=== PATIENT | female | born 1930 | race Caucasian/White ===

== ENCOUNTER → 2016-08-07 | Outpatient (CLI) | payer MEDICARE, BC, OTHER ==
[~2016-08-07] MED LIST: ACTO150T PO; ASPI1TAB PO; CALC600T7 PO; DOCU10CA PO; KEPP500T6 PO; LIPI20TA PO; MELO7.5T6 PO; MIRA3350 PO; PEPC1TAB4 PO; PLAV75TA PO; PRESCAP PO; PROZ10CA7 PO; TYLE325T5 PO; VITMTA PO
--- NOTE | 2016-08-07 14:52 | REP ---
Right hip: Two views. History: Hip and low back pain. Findings: AP and frog-leg views of the right hip show diffuse osteopenia. Femoral head is smooth and rounded. There is osteoarthritic spurring and some chondrocalcinosis at the hip. No fractures seen. Vascular calcification is noted. Impression: Diffuse osteopenia. Osteoarthritic changes. Some vascular calcification. No acute bony abnormality. Signed by Royal Hoffmann MD 08/07/2016 03:39 P
--- NOTE | 2016-08-07 14:54 | REP ---
Lumbar spine series: Five views. History: Low back and hip pain. Comparison views are from June 25, 2015. Findings: There is a levoconvex thoracolumbar curve. There is osteoporotic wedging at the L3 and to some degree at L4. The L3 changes are status quo. There is some interval loss of vertebral body height at L4 compared to the June 25, 2015 study. No acute step-off is seen to suggest an acute fracture. Disc spaces are maintained. Vascular calcification is noted. There is diffuse degenerative disc and multi focal osteoarthritic facet disease. Advanced discogenic sclerosis and spur formation is seen at the L1, L2 unchanged. Sacrum and SI joints are intact. Impression: Osteoporotic wedging at L3 and L4 with interval loss of vertebral body height at L4 compared to June 25, 2015 prior study. Scoliosis, degenerative disc disease, and osteoarthritic facet disease are again noted. Signed by Royal Hoffmann MD 08/07/2016 03:39 P
== END ==
LOC: M WUC 11:26
PROVIDERS: ATTEND Physician Assistant
DX: M85.851 Other specified disorders of bone density and structure, right thigh (principal); M81.0 Age-related osteoporosis without current pathological fracture; M41.9 Scoliosis, unspecified; M51.36 Other intervertebral disc degeneration, lumbar region; M47.816 Spondylosis without myelopathy or radiculopathy, lumbar region

== ENCOUNTER 2016-08-08 14:11 | Emergency (ER) | payer MEDICARE, BC, OTHER ==
--- NOTE | 2016-08-08 16:29 | REP ---
CT CERVICAL SPINE WITHOUT CONTRAST: HISTORY: Back pain. A diffuse disc bulge is present at the L1-2 level. There are 2 mm of retrolisthesis of L1 on 2. There is minimal compression of the thecal sac. The L1 nerves exit the neural foramina without compression. A diffuse disc bulge is present at the L2-3 level. There is minimal compression of the thecal sac. There is hypertrophy of the posterior articulating facets. The L2 nerves exit the neural foramina without compression. A diffuse disc bulge is present at the L3-4 level. There is hypertrophy of the ligamenta flava and posterior articulating facets. These findings produce mild central canal stenosis. The L3 nerves exit the neural foramina without compression. A diffuse disc bulge is present at the L4-5 level. There is hypertrophy of the ligamentum flava and posterior articulating facets. There are 6 mm of grade 1 spondylolisthesis of L4 on 5. These findings produce moderate central canal stenosis. There is compression of the left L4 nerve in the neural foramen. The right L4 nerve exit the neural foramen without compression. A diffuse disc bulge is present at the L5-S1 level. There is minimal compression of the thecal sac. There is hypertrophy of the posterior articulating facets. There are 4 mm of grade 1 spondylolisthesis of L5 on S1. There is compression of the L5 nerves in the neural foramina. The lumbar intervertebral discs are decreased in height. Vacuum phenomenon is present at the T11-12 through L2-3 and L4-5 levels. These findings are consistent with disc degeneration. The are old compression fracture of the L3 and L4 vertebral bodies with mild and minimal height loss. There is scoliosis convex to the left. IMPRESSION: 1. Diffuse disc bulge and retrolisthesis at the L1-2 level with minimal thecal sac compression. 2. Diffuse disc bulge at the L2-3 level with minimal thecal sac compression. 3. Mild central canal stenosis at the L3-4 level secondary to disc bulge, ligamentous and facet hypertrophy. 4. Moderate central canal stenosis at the L4-5 level secondary to disc bulge, ligamentous, and facet hypertrophy and grade 1 spondylolisthesis. 5. Diffuse disc bulge at the L5-S1 level with minimal thecal sac compression. There is grade 1 spondylolisthesis of L5 on S1. Signed by Humble Frausto MD 08/08/2016 04:51 P
[2016-08-08] MEDS ORDERED: traMADol 50 MG TAB As Ordered ONE (18:04)
--- NOTE | 2016-08-08 18:24 | EDDOCDS ---
Nurse's Notes [facility] Name: Jamilah Shipman Age: 86 yrs Sex: Female : 1930 Arrival Date: 08/08/2016 Time: 14:11 Bed 8 Private MD: Diagnosis: Discitis, unspecified, multiple sites in spine Presentation: 08/08 14:13 Presenting complaint: EMS states: Pt was taken to urgent care yesterday for back pain hs1 and multiple X-rays taken. Pt presenting back with increased pain. Son states Tylenol not working and pain is increased, home health workers unable to get patient up and moving. Son states might be on going issue as a week ago pt also reported back issues. Acute neurological deficits are not present. Mechanism of Injury: No Mechanism of Injury. Adult Sepsis Screening: The patient does not have new or worsening altered mentation. Patient's respiratory rate is less than 22. Systolic blood pressure is less than or equal to 100 (1 point). Patient has a qSOFA score of 0- Negative Sepsis Screen. Suicide/Homicide risk assessment- the patient denies having any suicidal and/or homicidal ideations and does not present with any other emotional, behavioral or mental health complaints. Status: Patient is not a career services coordinator or dependent. Transition of care: patient was not received from another setting of care. 14:13 Acuity: CALE Level 4 hs1 14:13 Method Of Arrival: Ambulance hs1 Triage Assessment: 14:13 General: Appears in no apparent distress, Behavior is appropriate for age. Pain: hs1 Location: back. Neurological: Level of Consciousness is awake, alert, obeys commands. Respiratory: Airway is patent Respiratory effort is even, unlabored, Respiratory pattern is regular, symmetrical. Derm: Skin is pink, warm & dry. normal. Musculoskeletal: cervical spine is non-tender. Capillary refill < 3 seconds Signs and Symptoms of Compartment Syndrome: no signs of compartment syndrome Tenderness present in back. Historical: - Allergies: Aricept (confusion); Azithromycin (itchy); - Home Meds: 1. Actonel 150 mg Oral tab 1 tab once moly 2. Xanax 0.25 mg Oral tab 1 tab as needed (Last dose: 08/08/2016 13:00) 3. Voltaren topical Oral as needed 4. Tylenol 500 mg Oral 2 tabs every 6 hours as needed (Last dose: 08/08/2016 13:00) 5. Crestor 10 mg Oral tab 1 tab once daily 6. meloxicam 7.5 mg oral tab 1 tab once daily (Last dose: 08/08/2016 08:00) 7. Prozac 20 mg Oral cap 1 cap once daily 8. Risperdal 0.5 mg Oral tab 1 tabs once daily 9. Vitamin D Oral 2000 units daily 10. aspirin 81 mg Oral chew 1 tab once daily 11. multivitamin Oral tab 12. Colace 100 mg oral cap 1 cap once daily 13. Benadryl 25 mg Oral cap 1 cap once daily - PMHx: Arthritis; CVA; Hypercholesterolemia; intracranial hemorrhage; Osteoporosis; transient vision loss; - PSHx: Hernia repair; Brain Aneurysm Repair; - Social history: Smoking status: Patient states former smoker of tobacco. No barriers to communication noted, The patient speaks fluent Wolof, Speaks appropriately for age. - Family history: Not pertinent. - : The pt / caregiver states he / she is not on anticoagulants. Home medication list is obtained from the patient. - Exposure Risk Screening:: None identified. Screenin:07 Screening information is obtained from family members. Fall risk: At risk due to age, hs1 apparent cognitive impairment, The following interventions are performed due to a positive Fall Risk Screen: Fall Risk is added to Special Handling on the patient Summary Screen. A Fall Risk Bracelet was applied to the patient. Side Rails are placed in the up position. A Call Rodriguez is given with instruction to call for help when getting out of bed. Fall Alert bracelet is placed on the patient. Abuse/DV Screen: The patient / caregiver reports he/she is: not in a situation that causes fear, pain or injury. Nutritional screening: No deficits noted. home support is adequate. 18:16 Assistance ADL's: Requires assistance with meal preparation, this assistance is hs1 provided by family members, bathing, assistance is provided by family members, dressing, assistance is provided by family members, toileting, assistance is provided by family members, housework, assistance is provided by family members, medication administration, assistance is provided by family members. Advance Directives: There is an active DNR order but there is no copy available at this time. Assessment: 15:07 General: Appears in no apparent distress, comfortable, Behavior is appropriate for age, hs1 cooperative. Neurological: Level of Consciousness is awake, alert, obeys commands. Respiratory: Airway is patent Respiratory effort is even, unlabored. Derm: Skin is pink, warm & dry. normal. 16:49 General: Appears in no apparent distress, comfortable, Behavior is appropriate for age, hs1 cooperative, Pt tolerated getting on a fracture jade and assisted staff with helping lift hips. . 18:15 General: Appears in no apparent distress, comfortable, Behavior is appropriate for age, hs1 cooperative. Pain: Location: back. Cardiovascular: No deficits noted. Respiratory: Airway is patent Respiratory effort is even, unlabored. Derm: Skin is pink, warm & dry. normal. Vital Signs: 15:11 BP 157 / 71 LA Supine (auto/reg); Pulse 61 MON; Resp 20 S; Temp 97.0(O); Pulse Ox 95% cln on R/A; Pain 10/10; 18:16 BP 195 / 89; Pulse 66; Resp 18; Temp 98.6(TE); Pulse Ox 98% ; hs1 Vitals: 15:12 Log In Time N/A - ambulance arrival. hs1 ED Course: 14:12 Patient visited by Kristina Mendoza, Director Technical. deg 14:12 Patient moved to Waiting deg 14:12 Patient moved to 8 deg 14:18 Triage Initiated hs1 14:21 Cecil Hare DO is Attending Physician. cs11 14:21 Patient visited by Cecil Hare DO. cs11 15:05 Patient visited by Gisela King RN. hs1 15:11 Patient visited by Tatianna Verduzco PCA. cln 15:12 The patient / caregiver is instructed regarding the plan of care and ED course. hs1 15:20 [facility] Payment Agreement was scanned into [employer] and attached to record. mpb 15:59 Patient visited by Gisela King RN. hs1 16:37 CT Spine, Lumbar W/o Contrast Returned. EDMS 16:49 Patient visited by Gisela King RN. hs1 18:22 No IV's were initiated during this patient's visit. No procedures done that require hs1 assistance. Administered Medications: 18:15 Drug: traMADol 50 mg [tramadol 50 mg tablet (1 tabs)] Route: PO; hs1 18:22 Drug: traMADol 50mg- 4 pack 1 packets [tramadol 50 mg tablet (1 tabs)] {Co-Signature: hs1 ms18 (Jeannine Rosario RN).} Route: PO; Order Results: Radiology Order: CT Spine, Lumbar W/o Contrast Test: CT Spine, Lumbar W/o Contrast REASON FOR EXAMINATION: pain; CT CERVICAL SPINE WITHOUT CONTRAST:; ; HISTORY: Back pain.; ; A diffuse disc bulge is present at the L1-2 level. There are 2 mm of; retrolisthesis of L1 on 2. There is minimal compression of the thecal sac. The L1; nerves exit the neural foramina without compression.; ; A diffuse disc bulge is present at the L2-3 level. There is minimal compression; of the thecal sac. There is hypertrophy of the posterior articulating facets. The; L2 nerves exit the neural foramina without compression.; ; A diffuse disc bulge is present at the L3-4 level. There is hypertrophy of the; ligamenta flava and posterior articulating facets. These findings produce mild; central canal stenosis. The L3 nerves exit the neural foramina without; compression.; ; A diffuse disc bulge is present at the L4-5 level. There is hypertrophy of the; ligamentum flava and posterior articulating facets. There are 6 mm of grade 1; spondylolisthesis of L4 on 5. These findings produce moderate central canal; stenosis. There is compression of the left L4 nerve in the neural foramen. The; right L4 nerve exit the neural foramen without compression.; ; A diffuse disc bulge is present at the L5-S1 level. There is minimal compression; of the thecal sac. There is hypertrophy of the posterior articulating facets.; There are 4 mm of grade 1 spondylolisthesis of L5 on S1. There is compression of; the L5 nerves in the neural foramina.; ; The lumbar intervertebral discs are decreased in height. Vacuum phenomenon is; present at the T11-12 through L2-3 and L4-5 levels. These findings are consistent; with disc degeneration. The are old compression fracture of the L3 and L4; vertebral bodies with mild and minimal height loss. There is scoliosis convex to; the left.; ; IMPRESSION:; ; 1. Diffuse disc bulge and retrolisthesis at the L1-2 level with minimal thecal; sac compression.; ; 2. Diffuse disc bulge at the L2-3 level with minimal thecal sac compression.; ; 3. Mild central canal stenosis at the L3-4 level secondary to disc bulge,; ligamentous and facet hypertrophy.; ; 4. Moderate central canal stenosis at the L4-5 level secondary to disc bulge,; ligamentous, and facet hypertrophy and grade 1 spondylolisthesis.; ; 5. Diffuse disc bulge at the L5-S1 level with minimal thecal sac compression.; There is grade 1 spondylolisthesis of L5 on S1.; ; ; Signed by; Humble Frausto MD 08/08/2016 04:51 P; Outcome: 17:42 Discharge ordered by Provider. cs11 18:15 Discharge Assessment: Patient awake, alert and oriented x 3. No cognitive and/or hs1 functional deficits noted. Patient verbalized understanding of disposition instructions. patient administered narcotics - yes. Pt provided with safe discharge. The following High Risk Discharge criteria are identified: None. Discharged to home ambulatory, with family. Condition: stable. Discharge instructions given to patient, Instructed on discharge instructions, follow up and referral plans. medication usage, Demonstrated understanding of instructions, medications, Pt was receptive of discharge instructions/ teaching. Prescriptions given X 1. CT Study completed. Property sent home with patient. 18:22 Patient left the ED. hs1 Signatures: Dispatcher [employer] EDMS Kristina Mendoza, Director Technical Unit deg Gisela King, RN RN hs1 Cecil Hare DO DO cs11 Mele Fernandez, Reg Reg mpb Tatianna Verduzco, INSPECTOR PACKAGER INSPECTOR PACKAGER anoop Rosario RN ms18 MTDD
--- NOTE | 2016-08-08 18:24 | EDDOCDS ---
Physician Documentation [facility] Name: Jamilah Shipman Age: 86 yrs Sex: Female : 1930 Arrival Date: 08/08/2016 Time: 14:11 Bed 8 Private MD: Disposition: 08/08/16 17:42 Discharged to Home/Self Care. Impression: Discitis, unspecified, multiple sites in spine. - Condition is Stable. - Prescriptions for Tramadol 50 mg Oral Tablet - take 1 tablet by ORAL route 4 times per day As needed MDD: 4 tabs; 20 tablet. - Medication Reconciliation, Local Pharmacy Hours form. - Follow up: Private Physician; When: Call to arrange an appointment; Reason: Recheck today's complaints. - Problem is chronic. - Symptoms have improved. Historical: - Allergies: Aricept (confusion); Azithromycin (itchy); - Home Meds: 1. Actonel 150 mg Oral tab 1 tab once moly 2. Xanax 0.25 mg Oral tab 1 tab as needed (Last dose: 08/08/2016 13:00) 3. Voltaren topical Oral as needed 4. Tylenol 500 mg Oral 2 tabs every 6 hours as needed (Last dose: 08/08/2016 13:00) 5. Crestor 10 mg Oral tab 1 tab once daily 6. meloxicam 7.5 mg oral tab 1 tab once daily (Last dose: 08/08/2016 08:00) 7. Prozac 20 mg Oral cap 1 cap once daily 8. Risperdal 0.5 mg Oral tab 1 tabs once daily 9. Vitamin D Oral 2000 units daily 10. aspirin 81 mg Oral chew 1 tab once daily 11. multivitamin Oral tab 12. Colace 100 mg oral cap 1 cap once daily 13. Benadryl 25 mg Oral cap 1 cap once daily - PMHx: Arthritis; CVA; Hypercholesterolemia; intracranial hemorrhage; Osteoporosis; transient vision loss; - PSHx: Hernia repair; Brain Aneurysm Repair; - Social history: Smoking status: Patient states former smoker of tobacco. No barriers to communication noted, The patient speaks fluent Wolof, Speaks appropriately for age. - Family history: Not pertinent. - : The pt / caregiver states he / she is not on anticoagulants. Home medication list is obtained from the patient. - Exposure Risk Screening:: None identified. Vital Signs: 08/08 15:11 BP 157 / 71 LA Supine (auto/reg); Pulse 61 MON; Resp 20 S; Temp 97.0(O); Pulse Ox 95% cln on R/A; Pain 10/10; 18:16 BP 195 / 89; Pulse 66; Resp 18; Temp 98.6(TE); Pulse Ox 98% ; hs1 MDM: 15:05 CT Spine, Lumbar W/o Contrast Ordered. EDMO 15:17 Financial registration complete. b 15:20 [facility] Payment Agreement was scanned into [employer] and attached to record. mpb 17:36 traMADol 50 mg PO once ordered. cs11 17:43 traMADol 50mg- 4 pack 1 packets PO once; Dispense with patient. Take per package cs11 instructions. ordered. Administered Medications: 18:15 Drug: traMADol 50 mg [tramadol 50 mg tablet (1 tabs)] Route: PO; hs1 18:22 Drug: traMADol 50mg- 4 pack 1 packets [tramadol 50 mg tablet (1 tabs)] {Co-Signature: hs1 ms18 (Jeannine Rosario RN).} Route: PO; Signatures: Dispatcher [employer] EDMO Gisela King RN RN hs1 Cecil Hare DO DO cs11 Mele Fernandez, Reg Reg mpb Jeannine Rosario RN ms18 The chart was reviewed and I authenticate all verbal orders and agree with the evaluation and treatment provided.Attachments: 15:20 [facility] Payment Agreement mpb MTDD
--- NOTE | 2016-08-10 19:24 | EDDOCDS ---
Physician Documentation [facility] Name: Jamilah Shipman Age: 86 yrs Sex: Female : 1930 Arrival Date: 08/08/2016 Time: 14:11 Bed 8 Private MD: Disposition: 08/08/16 17:42 Discharged to Home/Self Care. Impression: Discitis, unspecified, multiple sites in spine. - Condition is Stable. - Prescriptions for Tramadol 50 mg Oral Tablet - take 1 tablet by ORAL route 4 times per day As needed MDD: 4 tabs; 20 tablet. - Medication Reconciliation, Local Pharmacy Hours form. - Follow up: Private Physician; When: Call to arrange an appointment; Reason: Recheck today's complaints. - Problem is chronic. - Symptoms have improved. Historical: - Allergies: Aricept (confusion); Azithromycin (itchy); - Home Meds: 1. Actonel 150 mg Oral tab 1 tab once moly 2. Xanax 0.25 mg Oral tab 1 tab as needed (Last dose: 08/08/2016 13:00) 3. Voltaren topical Oral as needed 4. Tylenol 500 mg Oral 2 tabs every 6 hours as needed (Last dose: 08/08/2016 13:00) 5. Crestor 10 mg Oral tab 1 tab once daily 6. meloxicam 7.5 mg oral tab 1 tab once daily (Last dose: 08/08/2016 08:00) 7. Prozac 20 mg Oral cap 1 cap once daily 8. Risperdal 0.5 mg Oral tab 1 tabs once daily 9. Vitamin D Oral 2000 units daily 10. aspirin 81 mg Oral chew 1 tab once daily 11. multivitamin Oral tab 12. Colace 100 mg oral cap 1 cap once daily 13. Benadryl 25 mg Oral cap 1 cap once daily - PMHx: Arthritis; CVA; Hypercholesterolemia; intracranial hemorrhage; Osteoporosis; transient vision loss; - PSHx: Hernia repair; Brain Aneurysm Repair; - Social history: Smoking status: Patient states former smoker of tobacco. No barriers to communication noted, The patient speaks fluent Urdu, Speaks appropriately for age. - Family history: Not pertinent. - : The pt / caregiver states he / she is not on anticoagulants. Home medication list is obtained from the patient. - Exposure Risk Screening:: None identified. Vital Signs: 08/08 15:11 BP 157 / 71 LA Supine (auto/reg); Pulse 61 MON; Resp 20 S; Temp 97.0(O); Pulse Ox 95% cln on R/A; Pain 1010; 18:16 BP 195 / 89; Pulse 66; Resp 18; Temp 98.6(TE); Pulse Ox 98% ; hs1 MDM: 15:05 CT Spine, Lumbar W/o Contrast Ordered. EDIA 15:17 Financial registration complete. [facility] 15:20 [facility] Payment Agreement was scanned into [employer] and attached to record. mpb 17:36 traMADol 50 mg PO once ordered. cs11 17:43 traMADol 50mg- 4 pack 1 packets PO once; Dispense with patient. Take per package cs11 instructions. ordered. 08/09 04:05 T-Sheet-- Draft Copy was scanned into [employer] and attached to record. hs2 Administered Medications: 08/08 18:15 Drug: traMADol 50 mg [tramadol 50 mg tablet (1 tabs)] Route: PO; hs1 18:22 Drug: traMADol 50mg- 4 pack 1 packets [tramadol 50 mg tablet (1 tabs)] {Co-Signature: hs1 ms18 (Jeannine Rosario RN).} Route: PO; Signatures: Dispatcher [employer] EDIA Gisela King, RN RN hs1 Cecil Hare, DO cs11 Mele Fernandez, Reg Reg mpb Aleta Aguilera, Reg Reg hs2 Jeannine Rosario RN ms18 The chart was reviewed and I authenticate all verbal orders and agree with the evaluation and treatment provided.Attachments: 15:20 [facility] Payment Agreement [facility] 08/09 04:05 T-Sheet-- Draft Copy hs2 Chart Complete MTDD
--- NOTE | 2016-08-10 19:24 | EDDOCDS ---
Nurse's Notes [facility] Name: Jamilah Shipman Age: 86 yrs Sex: Female : 1930 Arrival Date: 08/08/2016 Time: 14:11 Bed 8 Private MD: Diagnosis: Discitis, unspecified, multiple sites in spine Presentation: 08/08 14:13 Presenting complaint: EMS states: Pt was taken to urgent care yesterday for back pain hs1 and multiple X-rays taken. Pt presenting back with increased pain. Son states Tylenol not working and pain is increased, home health workers unable to get patient up and moving. Son states might be on going issue as a week ago pt also reported back issues. Acute neurological deficits are not present. Mechanism of Injury: No Mechanism of Injury. Adult Sepsis Screening: The patient does not have new or worsening altered mentation. Patient's respiratory rate is less than 22. Systolic blood pressure is less than or equal to 100 (1 point). Patient has a qSOFA score of 0- Negative Sepsis Screen. Suicide/Homicide risk assessment- the patient denies having any suicidal and/or homicidal ideations and does not present with any other emotional, behavioral or mental health complaints. Status: Patient is not a donor services team leader or dependent. Transition of care: patient was not received from another setting of care. 14:13 Acuity: CALE Level 4 hs1 14:13 Method Of Arrival: Ambulance hs1 Triage Assessment: 14:13 General: Appears in no apparent distress, Behavior is appropriate for age. Pain: hs1 Location: back. Neurological: Level of Consciousness is awake, alert, obeys commands. Respiratory: Airway is patent Respiratory effort is even, unlabored, Respiratory pattern is regular, symmetrical. Derm: Skin is pink, warm & dry. normal. Musculoskeletal: cervical spine is non-tender. Capillary refill < 3 seconds Signs and Symptoms of Compartment Syndrome: no signs of compartment syndrome Tenderness present in back. Historical: - Allergies: Aricept (confusion); Azithromycin (itchy); - Home Meds: 1. Actonel 150 mg Oral tab 1 tab once moly 2. Xanax 0.25 mg Oral tab 1 tab as needed (Last dose: 08/08/2016 13:00) 3. Voltaren topical Oral as needed 4. Tylenol 500 mg Oral 2 tabs every 6 hours as needed (Last dose: 08/08/2016 13:00) 5. Crestor 10 mg Oral tab 1 tab once daily 6. meloxicam 7.5 mg oral tab 1 tab once daily (Last dose: 08/08/2016 08:00) 7. Prozac 20 mg Oral cap 1 cap once daily 8. Risperdal 0.5 mg Oral tab 1 tabs once daily 9. Vitamin D Oral 2000 units daily 10. aspirin 81 mg Oral chew 1 tab once daily 11. multivitamin Oral tab 12. Colace 100 mg oral cap 1 cap once daily 13. Benadryl 25 mg Oral cap 1 cap once daily - PMHx: Arthritis; CVA; Hypercholesterolemia; intracranial hemorrhage; Osteoporosis; transient vision loss; - PSHx: Hernia repair; Brain Aneurysm Repair; - Social history: Smoking status: Patient states former smoker of tobacco. No barriers to communication noted, The patient speaks fluent Lao, Speaks appropriately for age. - Family history: Not pertinent. - : The pt / caregiver states he / she is not on anticoagulants. Home medication list is obtained from the patient. - Exposure Risk Screening:: None identified. Screenin:07 Screening information is obtained from family members. Fall risk: At risk due to age, hs1 apparent cognitive impairment, The following interventions are performed due to a positive Fall Risk Screen: Fall Risk is added to Special Handling on the patient Summary Screen. A Fall Risk Bracelet was applied to the patient. Side Rails are placed in the up position. A Call Rodriguez is given with instruction to call for help when getting out of bed. Fall Alert bracelet is placed on the patient. Abuse/DV Screen: The patient / caregiver reports he/she is: not in a situation that causes fear, pain or injury. Nutritional screening: No deficits noted. home support is adequate. 18:16 Assistance ADL's: Requires assistance with meal preparation, this assistance is hs1 provided by family members, bathing, assistance is provided by family members, dressing, assistance is provided by family members, toileting, assistance is provided by family members, housework, assistance is provided by family members, medication administration, assistance is provided by family members. Advance Directives: There is an active DNR order but there is no copy available at this time. Assessment: 15:07 General: Appears in no apparent distress, comfortable, Behavior is appropriate for age, hs1 cooperative. Neurological: Level of Consciousness is awake, alert, obeys commands. Respiratory: Airway is patent Respiratory effort is even, unlabored. Derm: Skin is pink, warm & dry. normal. 16:49 General: Appears in no apparent distress, comfortable, Behavior is appropriate for age, hs1 cooperative, Pt tolerated getting on a fracture jade and assisted staff with helping lift hips. . 18:15 General: Appears in no apparent distress, comfortable, Behavior is appropriate for age, hs1 cooperative. Pain: Location: back. Cardiovascular: No deficits noted. Respiratory: Airway is patent Respiratory effort is even, unlabored. Derm: Skin is pink, warm & dry. normal. Vital Signs: 15:11 BP 157 / 71 LA Supine (auto/reg); Pulse 61 MON; Resp 20 S; Temp 97.0(O); Pulse Ox 95% cln on R/A; Pain 10/10; 18:16 BP 195 / 89; Pulse 66; Resp 18; Temp 98.6(TE); Pulse Ox 98% ; hs1 Vitals: 15:12 Log In Time N/A - ambulance arrival. hs1 ED Course: 14:12 Patient visited by Kristina Mendoza, Handle Finisher. deg 14:12 Patient moved to Waiting deg 14:12 Patient moved to 8 deg 14:18 Triage Initiated hs1 14:21 Cecil Hare DO is Attending Physician. cs11 14:21 Patient visited by Cecil Hare DO. cs11 15:05 Patient visited by Gisela King RN. hs1 15:11 Patient visited by Tatianna Verduzco PCA. cln 15:12 The patient / caregiver is instructed regarding the plan of care and ED course. hs1 15:20 [facility] Payment Agreement was scanned into [employer] and attached to record. mpb 15:59 Patient visited by Gisela King RN. hs1 16:37 CT Spine, Lumbar W/o Contrast Returned. EDMS 16:49 Patient visited by Gisela King RN. hs1 18:22 No IV's were initiated during this patient's visit. No procedures done that require hs1 assistance. 08/09 04:05 T-Sheet-- Draft Copy was scanned into [employer] and attached to record. hs2 Administered Medications: 08/08 18:15 Drug: traMADol 50 mg [tramadol 50 mg tablet (1 tabs)] Route: PO; hs1 18:22 Drug: traMADol 50mg- 4 pack 1 packets [tramadol 50 mg tablet (1 tabs)] {Co-Signature: hs1 ms18 (Jeannine Rosario RN).} Route: PO; Order Results: Radiology Order: CT Spine, Lumbar W/o Contrast Test: CT Spine, Lumbar W/o Contrast REASON FOR EXAMINATION: pain; CT CERVICAL SPINE WITHOUT CONTRAST:; ; HISTORY: Back pain.; ; A diffuse disc bulge is present at the L1-2 level. There are 2 mm of; retrolisthesis of L1 on 2. There is minimal compression of the thecal sac. The L1; nerves exit the neural foramina without compression.; ; A diffuse disc bulge is present at the L2-3 level. There is minimal compression; of the thecal sac. There is hypertrophy of the posterior articulating facets. The; L2 nerves exit the neural foramina without compression.; ; A diffuse disc bulge is present at the L3-4 level. There is hypertrophy of the; ligamenta flava and posterior articulating facets. These findings produce mild; central canal stenosis. The L3 nerves exit the neural foramina without; compression.; ; A diffuse disc bulge is present at the L4-5 level. There is hypertrophy of the; ligamentum flava and posterior articulating facets. There are 6 mm of grade 1; spondylolisthesis of L4 on 5. These findings produce moderate central canal; stenosis. There is compression of the left L4 nerve in the neural foramen. The; right L4 nerve exit the neural foramen without compression.; ; A diffuse disc bulge is present at the L5-S1 level. There is minimal compression; of the thecal sac. There is hypertrophy of the posterior articulating facets.; There are 4 mm of grade 1 spondylolisthesis of L5 on S1. There is compression of; the L5 nerves in the neural foramina.; ; The lumbar intervertebral discs are decreased in height. Vacuum phenomenon is; present at the T11-12 through L2-3 and L4-5 levels. These findings are consistent; with disc degeneration. The are old compression fracture of the L3 and L4; vertebral bodies with mild and minimal height loss. There is scoliosis convex to; the left.; ; IMPRESSION:; ; 1. Diffuse disc bulge and retrolisthesis at the L1-2 level with minimal thecal; sac compression.; ; 2. Diffuse disc bulge at the L2-3 level with minimal thecal sac compression.; ; 3. Mild central canal stenosis at the L3-4 level secondary to disc bulge,; ligamentous and facet hypertrophy.; ; 4. Moderate central canal stenosis at the L4-5 level secondary to disc bulge,; ligamentous, and facet hypertrophy and grade 1 spondylolisthesis.; ; 5. Diffuse disc bulge at the L5-S1 level with minimal thecal sac compression.; There is grade 1 spondylolisthesis of L5 on S1.; ; ; Signed by; Humble Frausto MD 08/08/2016 04:51 P; Outcome: 17:42 Discharge ordered by Provider. cs11 18:15 Discharge Assessment: Patient awake, alert and oriented x 3. No cognitive and/or hs1 functional deficits noted. Patient verbalized understanding of disposition instructions. patient administered narcotics - yes. Pt provided with safe discharge. The following High Risk Discharge criteria are identified: None. Discharged to home ambulatory, with family. Condition: stable. Discharge instructions given to patient, Instructed on discharge instructions, follow up and referral plans. medication usage, Demonstrated understanding of instructions, medications, Pt was receptive of discharge instructions/ teaching. Prescriptions given X 1. CT Study completed. Property sent home with patient. 18:22 Patient left the ED. hs1 Signatures: Dispatcher [employer] EDMS Kristina Mendoza, Handle Finisher Unit deg Gisela King RN RN hs1 Cecil Hare DO DO cs11 Mele Fernandez, Reg Reg mpb Aleta Aguilera, Reg Reg hs2 Tatianna Verduzco, WINDOW DRAPER WINDOW DRAPER rafan Jeannine Rosario RN ms18 Chart Complete MTDD
--- NOTE | 2016-08-10 19:24 | EDDOCDS ---
Physician Documentation [facility] Name: Jamilah Shipman Age: 86 yrs Sex: Female : 1930 Arrival Date: 08/08/2016 Time: 14:11 Bed 8 Private MD: Disposition: 08/08/16 17:42 Discharged to Home/Self Care. Impression: Discitis, unspecified, multiple sites in spine. - Condition is Stable. - Prescriptions for Tramadol 50 mg Oral Tablet - take 1 tablet by ORAL route 4 times per day As needed MDD: 4 tabs; 20 tablet. - Medication Reconciliation, Local Pharmacy Hours form. - Follow up: Private Physician; When: Call to arrange an appointment; Reason: Recheck today's complaints. - Problem is chronic. - Symptoms have improved. Historical: - Allergies: Aricept (confusion); Azithromycin (itchy); - Home Meds: 1. Actonel 150 mg Oral tab 1 tab once moly 2. Xanax 0.25 mg Oral tab 1 tab as needed (Last dose: 08/08/2016 13:00) 3. Voltaren topical Oral as needed 4. Tylenol 500 mg Oral 2 tabs every 6 hours as needed (Last dose: 08/08/2016 13:00) 5. Crestor 10 mg Oral tab 1 tab once daily 6. meloxicam 7.5 mg oral tab 1 tab once daily (Last dose: 08/08/2016 08:00) 7. Prozac 20 mg Oral cap 1 cap once daily 8. Risperdal 0.5 mg Oral tab 1 tabs once daily 9. Vitamin D Oral 2000 units daily 10. aspirin 81 mg Oral chew 1 tab once daily 11. multivitamin Oral tab 12. Colace 100 mg oral cap 1 cap once daily 13. Benadryl 25 mg Oral cap 1 cap once daily - PMHx: Arthritis; CVA; Hypercholesterolemia; intracranial hemorrhage; Osteoporosis; transient vision loss; - PSHx: Hernia repair; Brain Aneurysm Repair; - Social history: Smoking status: Patient states former smoker of tobacco. No barriers to communication noted, The patient speaks fluent Faroese, Speaks appropriately for age. - Family history: Not pertinent. - : The pt / caregiver states he / she is not on anticoagulants. Home medication list is obtained from the patient. - Exposure Risk Screening:: None identified. Vital Signs: 08/08 15:11 BP 157 / 71 LA Supine (auto/reg); Pulse 61 MON; Resp 20 S; Temp 97.0(O); Pulse Ox 95% cln on R/A; Pain 1010; 18:16 BP 195 / 89; Pulse 66; Resp 18; Temp 98.6(TE); Pulse Ox 98% ; hs1 MDM: 15:05 CT Spine, Lumbar W/o Contrast Ordered. EDOK 15:17 Financial registration complete. [facility] 15:20 [facility] Payment Agreement was scanned into [employer] and attached to record. mpb 17:36 traMADol 50 mg PO once ordered. cs11 17:43 traMADol 50mg- 4 pack 1 packets PO once; Dispense with patient. Take per package cs11 instructions. ordered. 08/09 04:05 T-Sheet-- Draft Copy was scanned into [employer] and attached to record. hs2 Administered Medications: 08/08 18:15 Drug: traMADol 50 mg [tramadol 50 mg tablet (1 tabs)] Route: PO; hs1 18:22 Drug: traMADol 50mg- 4 pack 1 packets [tramadol 50 mg tablet (1 tabs)] {Co-Signature: hs1 ms18 (Jeannine Rosario RN).} Route: PO; Signatures: Dispatcher [employer] EDOK Gisela King, RN RN hs1 Cecil Hare, DO cs11 Mele Fernandez, Reg Reg mpb Aleta Aguilera, Reg Reg hs2 Jeannine Rosario RN ms18 The chart was reviewed and I authenticate all verbal orders and agree with the evaluation and treatment provided.Attachments: 15:20 [facility] Payment Agreement [facility] 08/09 04:05 T-Sheet-- Draft Copy hs2 Chart Complete MTDD
== END 2016-08-08 18:22 | disposition home or self-care (01) ==
LOC: M ED 14:11
DX: M43.06 Spondylolysis, lumbar region (principal); M46.49 Discitis, unspecified, multiple sites in spine; E78.00 Pure hypercholesterolemia, unspecified; M81.0 Age-related osteoporosis without current pathological fracture; Z87.891 Personal history of nicotine dependence; Z79.82 Long term (current) use of aspirin; Z79.899 Other long term (current) drug therapy; Z88.1 Allergy status to other antibiotic agents; Z88.8 Allergy status to other drugs, medicaments and biological substances

== ENCOUNTER → 2016-11-26 | Outpatient (REF) | payer MEDICARE, BC, OTHER ==
[~2016-11-26] MED LIST changes: -PLAV75TA PO; +PLAV75TA38 PO
== END ==
LOC: M LAB 12:11
PROVIDERS: ATTEND Physician Assistant
DX: K59.1 Functional diarrhea (principal)

== ENCOUNTER → 2017-01-20 | Outpatient (REF) | payer MEDICARE, BC, OTHER ==
[~2017-01-20] MED LIST changes: +KEPP1TAB PO; -KEPP500T6 PO; -MELO7.5T6 PO; +MELO7.5T7 PO; +PLAV1TAB2 PO; -PLAV75TA38 PO
== END ==
LOC: M LAB REF 17:00
PROVIDERS: ATTEND Family Medicine
DX: R19.7 Diarrhea, unspecified (principal)

== ENCOUNTER 2018-03-14 13:08 | Inpatient (IN) | payer MEDICARE, BC, OTHER ==
[2018-03-14 14:34] LABS: BASO % 0.3 % (0.0-1.0); EOS % 0.4 % (0.0-3.0); HEMATOCRIT 22.4 % (36.0-47.0); IMMATURE GRANULOCYTE % 0.3 % (0-3.0); LYMPH # 0.7 10^3/uL (1.5-4.5); LYMPH % 6.8 % (24.0-44.0); MEAN CORPUSCULAR HEMOGLOBIN 19.4 pg (27.0-33.0); MEAN CORPUSCULAR HGB CONC 28.1 g/dl (32.0-36.5); MEAN CORPUSCULAR VOLUME 69.1 fl (80.0-96.0); MONO # 0.7 10^3/uL (0.0-0.8); MONO % 6.3 % (0.0-5.0); NEUTROPHILS # 8.8 10^3/uL (1.8-7.7); NEUTROPHILS % 85.9 % (36.0-66.0); PLATELET COUNT, AUTOMATED 284 10^3/uL (150-450); RED BLOOD COUNT 3.24 10^6/uL (4.00-5.40); RED CELL DISTRIBUTION WIDTH 17.2 % (11.5-14.5); WHITE BLOOD COUNT 10.3 10^3/uL (4.0-10.0)
[2018-03-14 14:44] LABS: HEMOGLOBIN 6.3 g/dl (12.0-15.5)
[2018-03-14] MEDS: NS 1,000 ML IV ×2 (14:45→23:12)
[2018-03-14 14:52] LABS: OSMOLALITY SERUM 290 MOSM/KG (280-301)
[2018-03-14 14:58] LABS: AMMONIA 10 uMOL/L (<32)
[2018-03-14 14:58] LABS: KETONE, URINE AUTO RFX NEGATIVE (NEGATIVE); LEUKOCYTE ESTERASE UR AUTO RFX NEGATIVE (NEGATIVE); MUCUS, URINE RFX SMALL (NEGATIVE); RBC, URINE AUTO RFX 2 /HPF (0-3); SPECIFIC GRAVITY UR AUTO RFX 1.018 (1.002-1.035); SQUAM EPITHELIAL CELL UR AURFX 0 /HPF (0-6); WBC, URINE AUTO RFX 8 /HPF (0-3)
[2018-03-14 14:59] LABS: NITRITE, URINE AUTO RFX POSITIVE (NEGATIVE)
[2018-03-14 15:01] LABS: LACTIC ACID SEPSIS PROTOCOL 1.2 MMOL/L (0.4-2.0)
[2018-03-14 15:02] LABS: ALBUMIN 2.9 GM/DL (3.2-5.2); ALBUMIN/GLOBULIN RATIO 0.88 (1.00-1.93); ALKALINE PHOSPHATASE 65 U/L (45-117); ALT/SGPT 15 U/L (12-78); ANION GAP 8 MEQ/L (8-16); AST/SGOT 13 U/L (7-37); BILIRUBIN,DIRECT < 0.1 MG/DL (0.0-0.2); BILIRUBIN,TOTAL 0.2 MG/DL (0.2-1.0); BLOOD UREA NITROGEN 18 MG/DL (7-18); CALCIUM LEVEL 8.3 MG/DL (8.8-10.2); CARBON DIOXIDE LEVEL 26 MEQ/L (21-32); CHLORIDE LEVEL 108 MEQ/L (98-107); CPK CREATINE PHOSPHOKINASE 58 U/L (26-192); CREATININE FOR GFR 0.88 MG/DL (0.55-1.30); GLOMERULAR FILTRATION RATE > 60.0 (>32); GLUCOSE, FASTING 99 MG/DL (70-100); POTASSIUM SERUM 4.2 MEQ/L (3.5-5.1); SODIUM LEVEL 142 MEQ/L (136-145); TOTAL PROTEIN 6.2 GM/DL (6.4-8.2); TROPONIN I < 0.02 NG/ML (< 0.10)
[2018-03-14 15:07] LABS: CK-MB VALUE MASS 1.8 NG/ML (<3.6); THYROID STIMULATING HORMONE 0.719 uIU/ML (0.358-3.740)
[2018-03-14] MEDS: PANTOPRAZOLE 40MG INJ (PROTONIX) (C9113) IV (15:49)
[2018-03-14 16:48] LABS: IMMEDIATE SPIN CROSSMATCH 1 2
[2018-03-14] MEDS ORDERED: traMADol 50 MG TAB PO (17:45)
[2018-03-14] MEDS ORDERED: ACETAMINOPHEN 500 MG TAB PO (17:45)
[2018-03-14] MEDS: ALPRAZolam 0.25 MG TAB PO (18:14)
[2018-03-14] MEDS: FLUoxetine 20 MG CAP PO (21:54)
[2018-03-14] MEDS: risperiDONE 0.5 MG TAB PO (21:55)
[2018-03-14] MEDS: BACTRIM 160MG/800MG DS TAB PO (21:55)
[2018-03-14] MEDS: ROSUVASTATIN 10 MG TAB (CRESTOR) PO (21:55)
[2018-03-14 23:45] LABS: HEMATOCRIT 29.9 % (36.0-47.0)
[2018-03-14 23:46] LABS: HEMOGLOBIN 9.3 g/dl (12.0-15.5)
[2018-03-15] MEDS: PANTOPRAZOLE 40MG INJ (PROTONIX) (C9113) IV ×2 (04:00→15:11)
[2018-03-15] MEDS: NS 1,000 ML IV ×3 (04:05→17:56)
[2018-03-15 06:45] LABS: ESTIMATED AVERAGE GLUCOSE 105 MG/DL (60-110); HEMOGLOBIN A1c 5.3 %
[2018-03-15 06:59] LABS: HEMATOCRIT 30.4 % (36.0-47.0); HEMOGLOBIN 9.7 g/dl (12.0-15.5); MEAN CORPUSCULAR HGB CONC 31.9 g/dl (32.0-36.5); MEAN CORPUSCULAR VOLUME 75.2 fl (80.0-96.0); PLATELET COUNT, AUTOMATED 218 10^3/uL (150-450); RED BLOOD COUNT 4.04 10^6/uL (4.00-5.40); RED CELL DISTRIBUTION WIDTH 22.5 % (11.5-14.5); WHITE BLOOD COUNT 7.2 10^3/uL (4.0-10.0)
[2018-03-15 07:08] LABS: ALBUMIN 2.3 GM/DL (3.2-5.2); ALBUMIN/GLOBULIN RATIO 0.82 (1.00-1.93); ALKALINE PHOSPHATASE 60 U/L (45-117); ALT/SGPT 12 U/L (12-78); ANION GAP 7 MEQ/L (8-16); AST/SGOT 14 U/L (7-37); BILIRUBIN,TOTAL 0.7 MG/DL (0.2-1.0); BLOOD UREA NITROGEN 11 MG/DL (7-18); CALCIUM LEVEL 7.2 MG/DL (8.8-10.2); CARBON DIOXIDE LEVEL 24 MEQ/L (21-32); CHLORIDE LEVEL 113 MEQ/L (98-107); GLOMERULAR FILTRATION RATE > 60.0 (>32); GLUCOSE, FASTING 71 MG/DL (70-100); POTASSIUM SERUM 3.9 MEQ/L (3.5-5.1); SODIUM LEVEL 144 MEQ/L (136-145); THYROID STIMULATING HORMONE 0.948 uIU/ML (0.358-3.740); TOTAL PROTEIN 5.1 GM/DL (6.4-8.2)
[2018-03-15] MEDS: BACTRIM 160MG/800MG DS TAB PO ×2 (08:33→20:31)
[2018-03-15] MEDS ORDERED: PILL CRUSHER/CUTTER 1 EACH XX (11:00)
[2018-03-15] MEDS ORDERED: LIDOCAINE 2% INJ 100 MG/5 ML SDV (FOR ANES.) As Ordered (12:49)
[2018-03-15] MEDS ORDERED: PROPOFOL 200 MG/20 ML VIAL As Ordered (12:49)
[2018-03-15] MEDS ORDERED: fentaNYL 100 MCG/2 ML INJECTION (J3010) As Ordered (12:49)
[2018-03-15] MEDS: MOM 30ML SUSPENSION UDC NG (15:10)
[2018-03-15] MEDS: VITAMIN D 1,000 INTERNATIONAL UNITS TABLET PO (15:10)
[2018-03-15] MEDS: CYANOCOBALAMIN 500 MCG TAB PO (15:11)
[2018-03-15] MEDS: SENOKOT S TAB PO (15:12)
[2018-03-15] MEDS: GOLYTELY SOLN 4000 ML BTL NG (17:14)
[2018-03-15 20:05] LABS: HEMATOCRIT 29.6 % (36.0-47.0); HEMOGLOBIN 9.4 g/dl (12.0-15.5)
[2018-03-15] MEDS: risperiDONE 0.5 MG TAB PO (20:31)
[2018-03-15] MEDS: FLUoxetine 20 MG CAP PO (20:31)
[2018-03-15] MEDS: ROSUVASTATIN 10 MG TAB (CRESTOR) PO (20:31)
[2018-03-16] MEDS: NS 1,000 ML IV ×2 (00:05→06:45)
[2018-03-16] MEDS: ALPRAZolam 0.25 MG TAB PO ×2 (01:04→22:20)
[2018-03-16] MEDS: PANTOPRAZOLE 40MG INJ (PROTONIX) (C9113) IV (03:24)
[2018-03-16 05:37] LABS: HEMATOCRIT 27.7 % (36.0-47.0); HEMOGLOBIN 8.8 g/dl (12.0-15.5); MEAN CORPUSCULAR HEMOGLOBIN 23.6 pg (27.0-33.0); MEAN CORPUSCULAR HGB CONC 31.8 g/dl (32.0-36.5); MEAN CORPUSCULAR VOLUME 74.3 fl (80.0-96.0); PLATELET COUNT, AUTOMATED 216 10^3/uL (150-450); RED BLOOD COUNT 3.73 10^6/uL (4.00-5.40); RED CELL DISTRIBUTION WIDTH 22.7 % (11.5-14.5); WHITE BLOOD COUNT 6.9 10^3/uL (4.0-10.0)
[2018-03-16 06:02] LABS: ANION GAP 8 MEQ/L (8-16); BLOOD UREA NITROGEN 4 MG/DL (7-18); CALCIUM LEVEL 7.1 MG/DL (8.8-10.2); CARBON DIOXIDE LEVEL 24 MEQ/L (21-32); CHLORIDE LEVEL 113 MEQ/L (98-107); CREATININE FOR GFR 0.68 MG/DL (0.55-1.30); GLOMERULAR FILTRATION RATE > 60.0 (>32); GLUCOSE, FASTING 81 MG/DL (70-100); MAGNESIUM LEVEL 1.7 MG/DL (1.8-2.4); POTASSIUM SERUM 3.2 MEQ/L (3.5-5.1); SODIUM LEVEL 145 MEQ/L (136-145)
[2018-03-16] MEDS: MAG SULF 1GM/100ML (MAG RUN) 1 GM in APPROPRIATE DILUENT 1 EA IV (06:52)
[2018-03-16] MEDS: POTASSIUM CHLORIDE 10 MEQ SR TABLET PO (06:53)
[2018-03-16] MEDS ORDERED: SIMETHICONE 40MG/0.6ML DROPS 30ML As Ordered (06:59)
[2018-03-16] MEDS: GOLYTELY SOLN 4000 ML BTL NG (08:30)
[2018-03-16] MEDS: BACTRIM 160MG/800MG DS TAB PO ×2 (08:39→22:20)
[2018-03-16] MEDS: SENOKOT S TAB PO (08:39)
[2018-03-16] MEDS: VITAMIN D 1,000 INTERNATIONAL UNITS TABLET PO (08:40)
[2018-03-16] MEDS: CYANOCOBALAMIN 500 MCG TAB PO (08:40)
[2018-03-16] MEDS: KCL 10MEQ/100ML SWI (KRUN) 10 MEQ in APPROPRIATE DILUENT 1 EA IV (09:00)
[2018-03-16 14:05] LABS: HEMATOCRIT 34.3 % (36.0-47.0)
[2018-03-16 14:09] LABS: HEMOGLOBIN 10.8 g/dl (12.0-15.5)
[2018-03-16] MEDS ORDERED: LIDOCAINE 2% INJ 100 MG/5 ML SDV (FOR ANES.) As Ordered (16:57)
[2018-03-16] MEDS ORDERED: PROPOFOL 200 MG/20 ML VIAL As Ordered (16:57)
[2018-03-16] MEDS ORDERED: ONDANSETRON 4MG/2ML VIAL (J2405) IV (20:30)
[2018-03-16] MEDS ORDERED: fentaNYL 100 MCG/2 ML INJECTION (J3010) IV (20:30)
[2018-03-16] MEDS: FLUoxetine 20 MG CAP PO (22:19)
[2018-03-16] MEDS: risperiDONE 0.5 MG TAB PO (22:19)
[2018-03-16] MEDS: ROSUVASTATIN 10 MG TAB (CRESTOR) PO (22:20)
[2018-03-17 05:41] LABS: HEMATOCRIT 27.4 % (36.0-47.0); MEAN CORPUSCULAR HEMOGLOBIN 23.8 pg (27.0-33.0); MEAN CORPUSCULAR HGB CONC 31.4 g/dl (32.0-36.5); MEAN CORPUSCULAR VOLUME 75.7 fl (80.0-96.0); PLATELET COUNT, AUTOMATED 224 10^3/uL (150-450); RED BLOOD COUNT 3.62 10^6/uL (4.00-5.40); RED CELL DISTRIBUTION WIDTH 23.7 % (11.5-14.5); WHITE BLOOD COUNT 5.3 10^3/uL (4.0-10.0)
[2018-03-17 05:59] LABS: HEMOGLOBIN 8.6 g/dl (12.0-15.5)
[2018-03-17 06:01] LABS: ANION GAP 9 MEQ/L (8-16); BLOOD UREA NITROGEN 3 MG/DL (7-18); CALCIUM LEVEL 7.3 MG/DL (8.8-10.2); CARBON DIOXIDE LEVEL 23 MEQ/L (21-32); CHLORIDE LEVEL 113 MEQ/L (98-107); CREATININE FOR GFR 0.66 MG/DL (0.55-1.30); GLOMERULAR FILTRATION RATE > 60.0 (>32); GLUCOSE, FASTING 71 MG/DL (70-100); MAGNESIUM LEVEL 2.1 MG/DL (1.8-2.4); POTASSIUM SERUM 3.1 MEQ/L (3.5-5.1); SODIUM LEVEL 145 MEQ/L (136-145)
[2018-03-17] MEDS: KCL 10MEQ/100ML SWI (KRUN) 10 MEQ in APPROPRIATE DILUENT 1 EA IV ×3 (08:18→11:00)
[2018-03-17] MEDS: BACTRIM 160MG/800MG DS TAB PO ×2 (09:37→21:23)
[2018-03-17] MEDS: POTASSIUM CHLORIDE 10 MEQ SR TABLET PO (09:37)
[2018-03-17] MEDS: CYANOCOBALAMIN 500 MCG TAB PO (09:37)
[2018-03-17] MEDS: VITAMIN D 1,000 INTERNATIONAL UNITS TABLET PO (09:37)
[2018-03-17] MEDS: SENOKOT S TAB PO (09:37)
[2018-03-17] MEDS: ALPRAZolam 0.25 MG TAB PO ×2 (09:51→21:23)
[2018-03-17 12:50] LABS: HEMOGLOBIN 9.4 g/dl (12.0-15.5); MEAN CORPUSCULAR HEMOGLOBIN 23.7 pg (27.0-33.0); MEAN CORPUSCULAR HGB CONC 31.3 g/dl (32.0-36.5); MEAN CORPUSCULAR VOLUME 75.8 fl (80.0-96.0); PLATELET COUNT, AUTOMATED 248 10^3/uL (150-450); RED BLOOD COUNT 3.96 10^6/uL (4.00-5.40); RED CELL DISTRIBUTION WIDTH 23.9 % (11.5-14.5); WHITE BLOOD COUNT 6.7 10^3/uL (4.0-10.0)
[2018-03-17] MEDS: risperiDONE 0.5 MG TAB PO (21:23)
[2018-03-17] MEDS: FLUoxetine 20 MG CAP PO (21:23)
[2018-03-17] MEDS: ROSUVASTATIN 10 MG TAB (CRESTOR) PO (21:23)
[2018-03-18 05:59] LABS: HEMATOCRIT 30.9 % (36.0-47.0); HEMOGLOBIN 9.7 g/dl (12.0-15.5); MEAN CORPUSCULAR HEMOGLOBIN 23.6 pg (27.0-33.0); MEAN CORPUSCULAR HGB CONC 31.4 g/dl (32.0-36.5); MEAN CORPUSCULAR VOLUME 75.2 fl (80.0-96.0); PLATELET COUNT, AUTOMATED 264 10^3/uL (150-450); RED BLOOD COUNT 4.11 10^6/uL (4.00-5.40); RED CELL DISTRIBUTION WIDTH 24.5 % (11.5-14.5); WHITE BLOOD COUNT 7.6 10^3/uL (4.0-10.0)
[2018-03-18 06:23] LABS: ANION GAP 9 MEQ/L (8-16); BLOOD UREA NITROGEN 2 MG/DL (7-18); CALCIUM LEVEL 8.3 MG/DL (8.8-10.2); CARBON DIOXIDE LEVEL 24 MEQ/L (21-32); CHLORIDE LEVEL 110 MEQ/L (98-107); CREATININE FOR GFR 0.83 MG/DL (0.55-1.30); GLOMERULAR FILTRATION RATE > 60.0 (>32); GLUCOSE, FASTING 90 MG/DL (70-100); POTASSIUM SERUM 3.8 MEQ/L (3.5-5.1); SODIUM LEVEL 143 MEQ/L (136-145)
[2018-03-18] MEDS: BACTRIM 160MG/800MG DS TAB PO (09:11)
[2018-03-18] MEDS: CYANOCOBALAMIN 500 MCG TAB PO (09:11)
[2018-03-18] MEDS: VITAMIN D 1,000 INTERNATIONAL UNITS TABLET PO (09:11)
[2018-03-18] MEDS: SENOKOT S TAB PO (09:11)
== END 2018-03-18 11:40 | disposition home or self-care (01) | DRG 378 ==
LOC: M ED 13:08 → M ED INP 17:32 → M PCU 21:05
PROC: 0DB78ZX Excision of Stomach, Pylorus, Via Natural or Artificial Opening Endoscopic, Diagnostic (ICD-10-PCS; principal; 2018-03-15 12:30)
PROC: 0DJD8ZZ Inspection of Lower Intestinal Tract, Via Natural or Artificial Opening Endoscopic (ICD-10-PCS; 2018-03-15 12:42)
DX: K57.31 Diverticulosis of large intestine without perforation or abscess with bleeding (principal); D62 Acute posthemorrhagic anemia; E78.5 Hyperlipidemia, unspecified; M81.0 Age-related osteoporosis without current pathological fracture; F32.9 Major depressive disorder, single episode, unspecified; K21.9 Gastro-esophageal reflux disease without esophagitis; G89.29 Other chronic pain; E87.6 Hypokalemia; K64.8 Other hemorrhoids; K25.9 Gastric ulcer, unspecified as acute or chronic, without hemorrhage or perforation; K44.9 Diaphragmatic hernia without obstruction or gangrene; F03.90 Unspecified dementia, unspecified severity, without behavioral disturbance, psychotic disturbance, mood disturbance, and anxiety; I10 Essential (primary) hypertension; Z79.82 Long term (current) use of aspirin; Z79.899 Other long term (current) drug therapy; Z88.1 Allergy status to other antibiotic agents; Z98.49 Cataract extraction status, unspecified eye; Z88.8 Allergy status to other drugs, medicaments and biological substances

== ENCOUNTER → 2018-03-25 | Outpatient (CLI) | payer MEDICARE, BC, OTHER | LOC: M WUC 11:27 | DX: S52.502A Unspecified fracture of the lower end of left radius, initial encounter for closed fracture (principal); S52.692A Other fracture of lower end of left ulna, initial encounter for closed fracture; Y92.89 Other specified places as the place of occurrence of the external cause; Y93.89 Activity, other specified; Y99.8 Other external cause status; X58.XXXA Exposure to other specified factors, initial encounter | CPT/HCPCS: 73110 ==

== ENCOUNTER 2018-03-26 12:13 | Emergency (ER) | payer MEDICARE, BC, OTHER | END 2018-03-26 14:13 | disposition home or self-care (01) | LOC: M ED 12:13 | DX: S52.502A Unspecified fracture of the lower end of left radius, initial encounter for closed fracture (principal); S52.602A Unspecified fracture of lower end of left ulna, initial encounter for closed fracture; X58.XXXA Exposure to other specified factors, initial encounter; Y92.9 Unspecified place or not applicable; Y93.9 Activity, unspecified; Y99.9 Unspecified external cause status; I95.9 Hypotension, unspecified; Z86.73 Personal history of transient ischemic attack (TIA), and cerebral infarction without residual deficits; F03.90 Unspecified dementia, unspecified severity, without behavioral disturbance, psychotic disturbance, mood disturbance, and anxiety; Z87.440 Personal history of urinary (tract) infections; F41.9 Anxiety disorder, unspecified; F32.9 Major depressive disorder, single episode, unspecified; Z87.891 Personal history of nicotine dependence; Z79.82 Long term (current) use of aspirin; Z79.899 Other long term (current) drug therapy; Z88.1 Allergy status to other antibiotic agents; Z88.8 Allergy status to other drugs, medicaments and biological substances | CPT/HCPCS: 99284 ==

== ENCOUNTER → 2018-10-03 | Outpatient (REF) | payer MEDICARE, OTHER ==
[~2018-10-03] MED LIST changes: +ACET500T15 PO; +ALPR0.25 PO; +AZEL0.05 OU; +CVS25TAB16 PO; +D 50CAP PO; +DOCU5LIQ PO; +FLUO20CA19 PO; +IMOD2TAB16 PO; +K-TA10TA2 PO; +MAG400TA PO; -PEPC1TAB4 PO; +PEPC1TAB5 PO; +PROBCAP14 PO; +RISE1TAB; +RISP0.5T3 PO; +ROSU10TA5; +ROSU10TA5 PO; +SENN8.6T7 PO; +TRAM50TA2 PO; +VITA-113 SL; +VITA200016 PO; +VOLT1GEL15 TOP; +XANA0.25 PO
== END ==
LOC: M LAB REF 15:14
PROVIDERS: ATTEND Physician Assistant
DX: R62.7 Adult failure to thrive (principal); R30.0 Dysuria